=== PATIENT | female | born 2000 | race Two or more races ===

== ENCOUNTER → 2022-02-22 12:01 | Outpatient (CLI) | payer OTHER, SELFPAY ==
--- NOTE | ~2022-02-22 | XR_ITS ---
EXAM: XR lumbar spine 2-3V HISTORY: M54.9 - Dorsalgia, unspecified COMPARISON: None available FINDINGS: 5 nonrib-bearing lumbar-type vertebral bodies. Pedicles intact. Normal vertebral body alig nment. Vertebral body heights preserved. Disc spaces maintained. Normal facets and posterior elements . IMPRESSION: Normal lumbar spine radiograph findings. Reviewed, dictated and finalized at location K.
--- NOTE | ~2022-02-22 | XR_ITS ---
EXAM: XR thoracic spine 3V HISTORY: M54.9 - Dorsalgia, unspecified COMPARISON: None available FINDINGS: Mild upper thoracic scoliosis. Pedicles intact. Normal vertebral body alignment. Vertebral body heights preserved. Disc spaces maintained. Normal facets and posterior elements. IMPRESSION: Mild upper thoracic scoliosis, otherwise normal thoracic spine radiograph findings. Reviewed, dictated and finalized at location K. IMPRESSION: Mild upper thoracic scoliosis, otherwise normal thoracic spine radiograph findi ngs.
== END ==
PROVIDERS: PCP Family Medicine; Visit Provider Family Medicine
DX: M54.9 Dorsalgia, unspecified (principal); M41.9 Scoliosis, unspecified
CPT/HCPCS: 72072; 72100

== ENCOUNTER 2022-04-08 14:02 | Outpatient (CLI) | payer OTHER, MEDICAID, SELFPAY ==
--- NOTE | 2022-04-08 16:35 | WPDPFTINT ---
PFT Procedure Performed PFT Procedure Performed Spirometry with Pre/Post Bronchodilator Plethysmography (Lung Vol) Diffusing Cap (DLCO) Flow Vol Loop PFT Interpretation This is a pulmonary function test with pre and post-bronchodilator spirometry, plethysmography and diffusing capacity. The test was performed and results interpreted in accordance with the 2019 and 2005 ATS/ERS Task Force guidelines respectively using the Global Lung Function Initiative-2012 reference equations. Patient demonstrated good effort and cooperation. Reproducibility criteria were met. The quality of the pre bronchodilator spirometry maneuver was Grade A and post bronchodilator spirometry maneuver was Grade A. Findings: Spirometry: The contour of the inspiratory and expiratory flow tracing are normal. The pre bronchodilator FVC is 4.11 L, 112% predicted. The pre bronchodilator FEV1 is 3.31 L, 104% predicted. The pre bronchodilator FEV1: FVC ratio is 81%. The post bronchodilator FVC is 3.94 L, representing a 4% decrease. The post bronchodilator FEV1 is 3.19 L, representing a 4% decrease. The post bronchodilator FEV1: FVC ratio was 81%. Plethysmography: The total lung capacity is 4.93 L, 101% predicted. The functional residual capacity is 2.06 L, 78% predicted. The residual volume is 0.83 L, 68% predicted. Diffusing capacity: The diffusing capacity unadjusted for hemoglobin and carboxyhemoglobin is 28.1, 111% predicted. The diffusing capacity adjusted for alveolar volume is 6.52, 129% predicted. Impression: The spirometry is normal without evidence of an obstructive abnormality. There is no significant improvement after inhaling a single dose of albuterol. The lung volumes are normal. The diffusing capacity unadjusted for hemoglobin and carboxyhemoglobin is normal and increased when adjusted for alveolar volume. There are no prior studies for comparison
== END 2022-04-08 14:03 | disposition home or self-care (01) ==
LOC: ANHPFT 14:03
PROVIDERS: PCP Family Medicine; Visit Provider Family Medicine
DX: R06.00 Dyspnea, unspecified (principal)
CPT/HCPCS: 94060; 94726; 94729